=== PATIENT | female | born 1980 | race Caucasian/White ===

== ENCOUNTER 2023-06-21 13:43 | Emergency (ER) | payer OTHER, BC, SELFPAY ==
[2023-06-21 14:00] VITALS: BP 220/150
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
[2023-06-21 16:00] VITALS: BP 195/129
[2023-06-21] MEDS: TYLENOL 1000 MG PO (16:02)
[2023-06-21] MEDS: NORVASC 10 MG PO (16:03)
[2023-06-21 16:48] VITALS: BP 202/122
[2023-06-21 17:36] VITALS: BP 202/122
== END 2023-06-21 17:37 | disposition home or self-care (01) ==
LOC: EMR 13:43
PROVIDERS: EMERGENCY PHYSICIAN Emergency Medicine
DX: S46.911A Strain of unspecified muscle, fascia and tendon at shoulder and upper arm level, right arm, initial encounter (principal); V43.52XA Car driver injured in collision with other type car in traffic accident, initial encounter; I10 Essential (primary) hypertension
CPT/HCPCS: 99283; 73030; 73080

== ENCOUNTER 2025-03-22 10:50 | Emergency (ER) | payer SELFPAY ==
[2025-03-22 10:53] VITALS: BP 170/100
[2025-03-22 12:02] VITALS: BP 148/95
--- NOTE | 2025-03-22 12:06 | ED.GENMED ---
History of Present Illness
General
Chief Complaint: BURN-MINOR
Source: patient
Exam Limitations: none
Time Seen by Provider: 03/22/25 11:28
Nursing documentation reviewed up to this point in time: agreed with
History of Present Illness
History of Present Illness:
Patient is a 44-year-old female with history of hypertension who presents to the emergency department with a minor burn of right wrist sustained at work earlier today. Patient works at [employer] in the [place]� and states that she accidentally spilled
hot coffee on her right wrist/forearm while at work. Given workplace injury�she was referred to the emergency department by management for evaluation.
Patient states she has significant skin sensitivity at area of burn on right wrist. She denies any numbness/tingling or loss of sensation in right hand or fingers.
No other concerns today.
Review of Systems
Review of Systems
Allergies reviewed?: Yes
All Other Systems: ROS reviewed and negative except as documented in HPI and ROS
Phy Exam
Physical Exam
Physical Exam:
Vitals: Hypertensive, otherwise vital signs stable. Afebrile
General: Patient is well appearing, no acute distress
Skin: Area of faint erythema on right dorsal wrist. No surrounding red streaking. No obvious blisters or drainage.
Head: Normocephalic, atraumatic
Throat: Protecting airway
Neck: Normal ROM, no cervical spine tenderness
Cardiac: Regular rate and rhythm
Pulm: No apparent respiratory distress
Abdomen: Nondistended
Extremities: Superficial davis to right wrist as above. 2+ palpable right radial pulse. Normal sensation in right hand/digits with normal capillary refill.
Neuro: Grossly intact
Psychiatric: Normal affect.
Course
Vital Signs
Initial and Last Documented VS:
Initial Vital Signs
Temp Pulse Resp BP Pulse Ox
98.6 F 68 17 170/100 98
03/22/25 10:53 03/22/25 10:53 03/22/25 10:53 03/22/25 10:53 03/22/25 10:53
Last Documented Vital Signs
Temp Pulse Resp BP Pulse Ox
98.6 F 85 20 148/95 98
03/22/25 10:53 03/22/25 12:02 03/22/25 12:02 03/22/25 12:02 03/22/25 12:06
MDM/Problems Addressed
Differential Diagnosis Includes:
Not limited to: Superficial burn, cellulitis, etc.
MDM/Problems Addressed:
44-year-old female with very superficial burn to right dorsal wrist sustained when hot coffee spilled at work. No other affected areas.
Vitals stable. On exam, there is an area of very faint erythema of the right dorsal wrist. No visible blisters or evidence of deeper tissue injury. No associated infection. Right upper extremity neurovascularly intact with good sensation and normal
capillary refill.
Will place non-adherent dressing and advise topical bacitracin and close monitoring for infection at home. Stable for discharge home. Patient comfortable with plan.
Chronic conditions affecting care:
Hypertension
Acute Exacerbation and/or Progression of Chronic Illness:
Acutely hypertensive
*Pulse Oximetry
SaO2: 98
Oxygen Mode of Delivery: Room air
Patient hypoxic: no
*EKG
Interpreted by ED Provider?: NA
*[employer] Teacher Interpretation
Rate: [employer] Education Teacher- N/A
*Critical Care Note
Total Time (30-74mins, 75-104mins- exclusive of procedures): Not Applicable
ED Attending Note
-
Portions of this chart may have been created with voice recognition software.� Occasional wrong word or��sound alike� substitutions may have occurred due to the inherent limitations of voice recognition software.
Discharge Plan
Departure
Patient Disposition: Home (Routine Discharge)
Date of Disposition: 03/22/25
Time of Disposition: 11:47
Patient with high blood pressure during this ER visit?: Yes
Condition: Good
Discharge Problem:
Superficial burn of right wrist
Instructions: Skin Davis (DC), BLOOD PRESSURE
Prescriptions:
No Action
amlodipine 10 mg tablet
10 mg PO DAILY Qty: 30 0RF
hydrochlorothiazide 25 mg tablet
25 mg PO DAILY Qty: 30 0RF
Referrals:
Cortez Weber MD, Resident [Family Provider, General]
Stand Alone Forms: Return to Work
Activity Restrictions/Additional Instructions:
RETURN TO THE EMERGENCY DEPARTMENT WITH ANY INTRACTABLE PAIN OF RIGHT UPPER EXTREMITY, SIGNS OF INFECTION INCLUDING FEVER, CHILLS, WORSENING REDNESS OR SWELLING AROUND BURN, OR ANY OTHER CONCERNS
- Please continue to keep burn clean and dry. You can apply small amount of topical bacitracin. Please apply nonstick bandage and wrap with gauze.
- Follow-up with your Workmen's Comp. physician for further evaluation and/or management as needed
Monitor your symptoms closely and return to the emergency department with any acute worsening/new symptoms or any signs of infection
Interventions
Interventions:
*Risk Screen - Suicide Last Done: 03/22/25 10:54
*General Assessment Last Done: 03/22/25 10:54
*Neglect/Abuse Screening Last Done: 03/22/25 10:54
*ED COVID-19 Vaccine History Last Done: 03/22/25 10:54
*ED Influenza Vaccine History Last Done: 03/22/25 10:54
*Nursing Disposition Last Done: 03/22/25 12:02
ED-Skin Assessment Last Done: 03/22/25 11:35
Discharge Date and Time
Discharge Date/Time: 03/22/25 12:04
Print Language: YAKUT
== END 2025-03-22 12:04 | disposition home or self-care (01) ==
LOC: EMR 10:50
PROVIDERS: EMERGENCY PHYSICIAN Emergency Medicine; FAMILY PHYSICIAN Student in an Organized Health Care Education/Training Program
DX: T23.171A Burn of first degree of right wrist, initial encounter (principal); X10.0XXA Contact with hot drinks, initial encounter; Y92.512 Supermarket, store or market as the place of occurrence of the external cause; Y99.0 Civilian activity done for income or pay; I10 Essential (primary) hypertension
CPT/HCPCS: 99282